=== PATIENT | female | born 1935 | race Caucasian/White ===

== ENCOUNTER 2019-07-06 05:21 | Inpatient (IN) | payer MEDICARE, OTHER ==
[~2019-07-06] VITALS: Ht 165.1 cm; Wt 53.8 kg
[2019-07-06] VITALS (14 sets, daily range): BP systolic 90–123; BP diastolic 47–90
--- NOTE | 2019-07-06 06:03 | PHYS DOC ---
Adult General Chief Complaint Chief Complaint: fever HPI HPI Patient is a 83 year old female who presents to the emergency department for evaluation of fever and difficulty breathing. The patient was brought to the emergency department by EMS from [facility]. Patient noted to have fever of 101F at nursing facility. Has been having cough and congestion over the past 2-3 days. Patient has history of dementia and is nonverbal, this history unable to be provided by patient. Patient was administered a breathing treatment at the nursing facility prior to arrival and patient was noted to be hypoxic on room air at 86%. Patient unable to verbalize any complaints at this time. The patient was administered a Tylenol suppository approximately one hour prior to arrival. Patient CODE STATUS is DNR. (ROSANNA HAMILTON MD) Review of Systems Review of Systems Unable to obtain from patient due to nonverbal status and profound dementia All other systems were reviewed and found to be within normal limits, except as documented in this note. (ROSANNA HAMILTON MD) Physical Exam Physical Exam Constitutional: Lethargic, febrile, appears acutely ill. [] HENT: Normocephalic, atraumatic, bilateral external ears normal, oropharynx dry, no oral exudates, nose normal. [] Eyes: PERRLA, EOMI, conjunctiva normal, no discharge. [] Neck: Normal range of motion, no tenderness, supple, no stridor. [] Cardiovascular: Tachycardia, regular rhythm, no murmur [] Lungs & Thorax: Fine rales bilaterally, mildly prolonged expiratory phase[] Abdomen: Bowel sounds normal, soft, no tenderness, no masses, no pulsatile masses. [] Skin: Warm, dry, no erythema, no rash. [] Back: No tenderness, no CVA tenderness. [] Extremities: No tenderness, no cyanosis, no clubbing, ROM intact, no edema. [] Neurologic: Lethargic, opens eyes to verbal commands, aphasic. [] (ROSANNA HAMILTON MD) EKG EKG [] (ROSANNA HAMILTON MD) Radiology/Procedures Radiology/Procedures [] (ROSANNA HAMILTON MD) Impressions: PORTABLE CHEST 1V Clinical Indication: Hypoxia, fever. Comparison: None. Findings: The cardiomediastinal silhouette is normal. Lungs are clear. There is no pneumothorax. No pleural effusion is appreciated. Left shoulder arthroplasty. Arthropathy of the right shoulder. IMPRESSION: No acute cardiopulmonary process. Electronically signed by: Jerry Foreman MD (07/06/2019 6:41 AM) [id number] DICTATED AND SIGNED BY: JERRY FOREMAN MD DATE: 07/06/19 0641 CC: DAVON RUBIO DO; ROSANNA HAMILTON MD; DILAN KUNZ MD ~ (DAVON RUBIO DO) Course & Med Decision Making Course & Med Decision Making Pertinent Labs and Imaging studies reviewed. (See chart for details) Suspect pneumonia. IV access obtained. Lab work including blood cultures and lactic acid level drawn and pending at time of sign out. Care of patient signed over to Dr. Rubio at 1802.[] (ROSANNA HAMILTON MD) Course & Med Decision Making The patient's chest x-ray was officially read as normal. I am pretty convinced see a right-sided pneumonia. Also fits the patient's clinical picture. I will go ahead and treat her with Zosyn. The patient does meet sepsis protocol with reported fever, heart rate about 90, and hypoxia. Her blood pressure is within normal limits. I have ordered 30 mL/kg of normal saline, actual body weight will be used. Her lactic acid is 3.7. White count is 18.3. The patient's influenza B is positive. Additionally treat her with Tamiflu liquid 75 mg. The patient has an elevated sodium of 166. She has gotten about 400 mL of lactated Ringer's. I will switch her liter of normal saline to half normal saline. She still needs the fluid resuscitation for sepsis protocol as well as looking clinically dry. I have been ordered 5% dextrose in water at 70 mL an hour. The patient's urinalysis is suggestive of urinary tract infection. I am already treating her with Zosyn which will cover this. I spoke with Dr. Kunz about the patient and he has accepted her for admission to the hospital. I discussed this plan of care with the family and they are in agreement. The patient is DNR, but they would like treatment for her infection. 41 minutes of critical care time was spent on this patient exclusive of other billable procedures. (DAVON RUBIO DO) Dragon Disclaimer Dragon Disclaimer This electronic medical record was generated, in whole or in part, using a voice recognition dictation system. (ROSANNA HAMILTON MD) Departure Departure: Impression: Primary Impression: Sepsis Additional Impressions: Healthcare-associated pneumonia Influenza B Hypernatremia Disposition: ADMITTED INPATIENT Admitting Physician: Dilan Kunz (DAVON RUBIO DO) Condition: GUARDED Referrals: DILAN KUNZ MD (PCP) Sepsis Assessment: Date and Time of Assessment Date: Jul 06, 2019 Time: 06:49 (RUBIO,DAVON DO) Vital Signs Vital Signs Heart rate 98, blood pressure 115/65, 86% on room air (RUBIO,DAVON DO) Respirations Respiratory Effort: Shortness of air Respiratory Pattern: Normal (RUBIO,DAVON DO) Cardiovascular Pulse Rhythm: Regular HEART: Nml rate, reg. rhythm (RUBIO,DAVON DO) Lung Sounds Breath Sounds: Coarse (RUBIO,DAVON DO) Capillary Refill Capillary Refill: Rt Hand > 3 seconds (RUBIO,DAVON DO) Peripheral Pulse Pulse Location: Monitor Pulse Strength: Normal (2+) Pulse Assessment Method: Monitor (RUBIO,DAVON DO) Integumentary Skin: Warm Skin Moisture: Dry Skin Turgor: Decreased Skin Color: no erythema Fingernail Color: WNL (RUBIO,DAVON DO) Sepsis Assessment: Date and Time of Assessment Date: Jul 06, 2019 Time: 09:24 (RUBIO,DAVON DO) Vital Signs Vital Signs Heart rate 84, blood pressure 109/88, O2 96% on 2 L nasal cannula. (RUBIO,DAVON DO) Respirations Respiratory Effort: Normal Respiratory Pattern: Normal (RUBIO,DAVON DO) Cardiovascular Pulse Rhythm: Regular HEART: Nml rate, reg. rhythm (RUBIO,DAVON DO) Lung Sounds Breath Sounds: Coarse (RUBIO,DAVON DO) Capillary Refill Capillary Refill: Rt Hand < 3 seconds (RUBIO,DAVON DO) Peripheral Pulse Pulse Location: Monitor Pulse Strength: Normal (2+) Pulse Assessment Method: Monitor (RUBIO,DAVON DO) Integumentary Skin: Warm Skin Moisture: Dry Skin Turgor: Decreased Skin Color: no erythema Fingernail Color: WNL (RUBIO,DAVON DO) Problem Qualifiers Primary Impression: Sepsis Sepsis type: sepsis due to unspecified organism ROSANNA HAMILTON MD Jul 06, 2019 06:03 DAVON RUBIO DO Jul 06, 2019 06:54
--- NOTE | 2019-07-06 06:44 | RAD ---
PORTABLE CHEST 1V Clinical Indication: Hypoxia, fever. Comparison: None. Findings: The cardiomediastinal silhouette is normal. Lungs are clear. There is no pneumothorax. No pleural effusion is appreciated. Left shoulder arthroplasty. Arthropathy of the right shoulder. IMPRESSION: No acute cardiopulmonary process. Electronically signed by: Jerry Foreman MD (07/06/2019 6:41 AM) [id number]
[2019-07-06] MEDS ORDERED: IV NORMAL SALINE 1,000ML 1,500 ML IV SCH (06:45)
[2019-07-06 06:48] LABS: BASO # 0.1 x10^3/uL (0.0-0.2); BASO % 0 % (0-3); EOS % 0 % (0-3); HEMATOCRIT 41.9 % (36.0-47.0); HEMOGLOBIN 13.2 g/dL (12.0-15.5); LYMPH % 5 % (24-48); MEAN CORPUSCULAR HEMOGLOBIN 31 pg (25-35); MEAN CORPUSCULAR HGB CONC 32 g/dL (31-37); MEAN CORPUSCULAR VOLUME 99 fL (79-100); MONO # 1.2 x10^3/uL (0.0-1.1); MONO % 6 % (0-9); NEUT # 16.1 x10^3uL (1.8-7.7); NEUT % 88 % (31-73); PLATELET COUNT 275 x10^3/uL (140-400); RED BLOOD COUNT 4.23 x10^6/uL (3.50-5.40); RED CELL DISTRIBUTION WIDTH 15.7 % (11.5-14.5); WHITE BLOOD COUNT 18.3 x10^3/uL (4.0-11.0)
[2019-07-06] MEDS ORDERED: IV NORMAL SALINE 1,000ML 1,000 ML IV SCH (07:00)
[2019-07-06] MEDS ORDERED: PIPERACILLIN/TAZOBACTAM 3.375 GM in IV NORMAL SALINE 50ML 50 ML IV ONE (07:00)
[2019-07-06 07:01] LABS: ALBUMIN 2.5 g/dL (3.4-5.0); ALBUMIN/GLOBULIN RATIO 0.4 (1.0-1.7); CALCIUM 8.7 mg/dL (8.5-10.1); CREATININE 1.4 mg/dL (0.6-1.0); GFR 35.9; POTASSIUM 3.4 mmol/L (3.5-5.1); TOTAL BILIRUBIN 0.5 mg/dL (0.2-1.0); TOTAL PROTEIN 8.1 g/dL (6.4-8.2)
[2019-07-06 07:01] LABS: INFLUENZA A PATIENT NEGATIVE (NEGATIVE); INFLUENZA B PATIENT POSITIVE (NEGATIVE)
[2019-07-06] MEDS ORDERED: OSELTAMIVIR 30 MG/5 ML ORAL.SUSP. PO STA (07:02)
[2019-07-06 07:04] LABS: BILIRUBIN,URINE NEG (NEG); CLARITY,URINE CLOUDY; COLOR,URINE AMBER; GLUCOSE,URINE NEG (NEG); NITRITE,URINE NEG (NEG)
[2019-07-06 07:05] LABS: AMORPHOUS SEDIMENT,UR PRESENT /HPF; BACTERIA,URINE MOD /HPF (0-FEW); HYALINE CASTS, URINE FEW /HPF; SQUAMOUS EPITHELIAL CELL,UR FEW /LPF
[2019-07-06] MEDS ORDERED: PIPERACILLIN/TAZOBACTAM 3.375 GM VIAL IV ONE (07:05)
[2019-07-06] MEDS ORDERED: IV NORMAL SALINE 50ML 50 ML ONE (07:05)
[2019-07-06] MEDS ORDERED: IV 1/2 NORMAL SALINE 1,000 ML IV ONE (07:15)
[2019-07-06 07:25] LABS: % LYMPHS 10 % (24-48); % MONOS 5 % (0-10); % SEGS 85 % (35-66)
[2019-07-06 07:26] LABS: PLT ESTIMATE ADEQUATE (ADEQUATE)
[2019-07-06] MEDS ORDERED: IV DEXTROSE 5% 1,000 ML IV ONE (07:30)
[2019-07-06] MEDS ORDERED: ONDANSETRON PF 4 MG/2 ML VIAL. IV PRN (07:30)
[2019-07-06] MEDS ORDERED: ACETAMINOPHEN 325 MG TABLET PO PRN (07:30)
[2019-07-06] MEDS: IPRATRPIUM/ALBUTEROL 0.5/2.5MG 3 ML NEBU. NEB SCH ×4 (08:27→21:30)
[2019-07-06] MEDS: IV DEXTROSE 5% 1,000 ML IV SCH ×2 (12:30→21:38)
--- NOTE | 2019-07-06 12:47 | HP ---
ADMIT DATE: 07/06/2019 HISTORY OF PRESENT ILLNESS: The patient is an 83-year-old female patient, a resident at [facility], who apparently was brought to the Emergency Department for evaluation of fever and shortness of breath. The nursing staff stated that she was febrile with temperature of 101 at the nursing facility. She has been having cough and congestion for the past 2-3 days. She is known to have dementia and is nonverbal. She was given breathing treatment at the nursing facility prior to arrival as she was noted to be hypoxic on room air at 86%. She is demented and unable to verbalize any complaint. She was extensively evaluated in the Emergency Room and her lab work showed a white cell count of 18,000. Her chemistry showed severe hypernatremia with a serum sodium of 166, hypokalemia and lactic acidosis. Her BUN and creatinine were also elevated at 36 and 1.4. Urinalysis showed the urine was cloudy with trace of leukocyte esterase, 11-20 wbc's and moderate amount of bacteria. Her influenza A was negative. Influenza B was positive. Her chest x-ray showed that the patient has cardiomediastinal silhouette which is normal. Lungs are clear. There is no pneumothorax, no pleural effusion appreciated. Left shoulder arthroplasty and arthropathy of the right shoulder; however, given the patient has leukocytosis with mostly polymorphonuclear leukocytes, fever with a background of influenza and dysphagia; favor the likelihood that she has also pneumonia. She was given IV fluid, was started on Tamiflu and Zosyn as then switched to D5W given that she has severe hypernatremia. PAST MEDICAL HISTORY: Significant for Alzheimer's disease, dementia, pseudobulbar affect as well as dysphagia. MEDICATIONS: She is currently on following medications: She is on Tylenol 650 mg rectally every 4 hours as needed for elevated temperature. She is also on Dulcolax suppository 10 mg rectally as needed for constipation, DuoNeb by nebulizer every 6 hours as needed. She is on milk of magnesia 30 mL p.o. daily p.r.n. for constipation, MiraLax 17 grams daily and Mucinex ____ 20 mL by mouth twice a day, senna 1 tablet once a day. ALLERGIES: The patient is allergic to AMIODARONE, SULFAMETHOXAZOLE AND TRIMETHOPRIM. FAMILY HISTORY: Noncontributory. SOCIAL HISTORY: [facility] She is mostly in a Broda chair, does not smoke, drink alcohol or use any recreational drugs. She has a daughter that is very caring and comes and visit her every day. The patient herself does not give any useful information. PHYSICAL EXAMINATION: GENERAL: On arrival to the Emergency Room, the patient was clearly tachypneic, but no jaundice, cyanosis or thyromegaly. No jugular venous distention. No limb edema. VITAL SIGNS: Her heart rate was 97, blood pressure was 112/59, temperature was 100, respiratory rate was 28 and oxygen saturation was 88% on room air, it went up to 96% on 2 liters of oxygen. HEAD, EYES, EARS, NOSE AND THROAT: Showed normocephalic, atraumatic. NECK: Supple. HEART: Showed normal first and second heart sounds. No gallop or murmur. CHEST: Clear to auscultation. No crepitation or rhonchi. ABDOMEN: Distended, soft, nontender. NEUROLOGIC: She is extremely lethargic. She is also demented without any obvious lateralizing sign. She is mostly bedbound, chair bound. LABORATORY DATA: Her lab work on arrival showed a white cell count of 18,300, hemoglobin 13, hematocrit 42, MCV 99 and platelet count 275,000. Her chemistry showed a serum sodium 166, potassium 3.4, chloride 126, bicarbonate 28, anion gap of 12, BUN 36, creatinine 1.4, estimated GFR was 56 mL per minute. Her glucose 126. Lactic acid was 3.7. Her calcium was 8.7. Total bilirubin 0.5. AST, ALT, alkaline phosphatase were normal. Total protein was 8.1, albumin was 2.5. Urinalysis showed the urine was cloudy with a pH of 5.5, specific gravity of 1.030, there was large amount of protein, negative for glucose, ketones, moderate amount of blood, negative for nitrite. There was a trace of leukocyte esterase. There were 3-5 rbc's, 11-20 wbc's, and moderate amount of bacteria. Her serology showed that the influenza A was negative and B was positive. ASSESSMENT AND PLAN: 1. In summary, this is an 83-year-old female patient who was admitted with influenza B. 2. Healthcare-associated pneumonia. 3. Severe hypernatremia and acute kidney injury. She is known to have dementia with oropharyngeal dysphagia. PLAN: To continue with Tamiflu, continue with D5W to replenish water deficit, was calculated about 4.8 liters. Continue with Zosyn. I would add also Zyvox and I will repeat her labs this afternoon and again tomorrow morning and would decide further management accordingly. DILAN CRANE MD DR: ANKIT/connor JOB#: [id number] / [id number]
[2019-07-06] MEDS ORDERED: IPRA3AMP29 NEB (15:16)
[2019-07-06] MEDS ORDERED: SENN8.8S5 PO (15:16)
[2019-07-06] MEDS ORDERED: ACET325T9 PO ×2 (15:16)
[2019-07-06] MEDS ORDERED: [UNRECOGNIZED DRUG - CODE] PO (15:16)
[2019-07-06] MEDS ORDERED: POLY119P4 PO ×2 (15:16)
[2019-07-06] MEDS ORDERED: MAGN24003 PO (15:16)
[2019-07-06] MEDS ORDERED: BISA10SU4 RC (15:16)
[2019-07-06] MEDS ORDERED: ACET650S11 RC (15:16)
[2019-07-06 15:27] LABS: CALCIUM 7.9 mg/dL (8.5-10.1); CREATININE 1.2 mg/dL (0.6-1.0); GFR 42.9; POTASSIUM 3.1 mmol/L (3.5-5.1)
[2019-07-06] MEDS: POTASSIUM CHLORIDE 40 MEQ in IV DEXTROSE 5% 1,000 ML IV SCH (18:08)
[2019-07-06] MEDS ORDERED: OSELTAMIVIR 30 MG/5 ML ORAL.SUSP. PEG SCH (21:00)
[2019-07-07] VITALS (18 sets, daily range): BP systolic 90–138; BP diastolic 44–97
[2019-07-07] MEDS: IPRATRPIUM/ALBUTEROL 0.5/2.5MG 3 ML NEBU. NEB SCH ×2 (04:23→21:03)
[2019-07-07] MEDS: POTASSIUM CHLORIDE 40 MEQ in IV DEXTROSE 5% 1,000 ML IV SCH ×2 (05:02→15:42)
[2019-07-07 07:10] LABS: HEMATOCRIT 35.9 % (36.0-47.0); HEMOGLOBIN 11.4 g/dL (12.0-15.5); RED BLOOD COUNT 3.64 x10^6/uL (3.50-5.40); RED CELL DISTRIBUTION WIDTH 15.8 % (11.5-14.5); WHITE BLOOD COUNT 17.4 x10^3/uL (4.0-11.0)
[2019-07-07 07:20] LABS: ALBUMIN 2.1 g/dL (3.4-5.0); ALBUMIN/GLOBULIN RATIO 0.4 (1.0-1.7); CALCIUM 8.1 mg/dL (8.5-10.1); CREATININE 1.1 mg/dL (0.6-1.0); GFR 47.4; MAGNESIUM 2.2 mg/dL (1.8-2.4); POTASSIUM 3.3 mmol/L (3.5-5.1); TOTAL BILIRUBIN 0.3 mg/dL (0.2-1.0)
[2019-07-07] MEDS: OSELTAMIVIR 30 MG/5 ML ORAL.SUSP. PO SCH ×2 (09:00→09:57)
[2019-07-07] MEDS ORDERED: ACETAMINOPHEN 650 MG SUPP.RECT. PR PRN (18:00)
[2019-07-08] VITALS (16 sets, daily range): BP systolic 90–122; BP diastolic 52–92
[2019-07-08] MEDS: POTASSIUM CHLORIDE 40 MEQ in IV DEXTROSE 5% 1,000 ML IV SCH (02:44)
[2019-07-08] MEDS: IPRATRPIUM/ALBUTEROL 0.5/2.5MG 3 ML NEBU. NEB SCH ×4 (05:37→20:10)
[2019-07-08] MEDS: OSELTAMIVIR 30 MG/5 ML ORAL.SUSP. PO SCH (08:19)
[2019-07-08 09:46] LABS: BASO % 0 % (0-3); EOS # 0.3 x10^3/uL (0.0-0.7); EOS % 2 % (0-3); HEMATOCRIT 34.7 % (36.0-47.0); HEMOGLOBIN 11.2 g/dL (12.0-15.5); LYMPH # 1.4 x10^3/uL (1.0-4.8); LYMPH % 10 % (24-48); MEAN CORPUSCULAR HEMOGLOBIN 32 pg (25-35); MEAN CORPUSCULAR HGB CONC 32 g/dL (31-37); MEAN CORPUSCULAR VOLUME 98 fL (79-100); MONO # 0.7 x10^3/uL (0.0-1.1); MONO % 5 % (0-9); NEUT # 12.1 x10^3uL (1.8-7.7); NEUT % 83 % (31-73); PLATELET COUNT 230 x10^3/uL (140-400); RED BLOOD COUNT 3.55 x10^6/uL (3.50-5.40); RED CELL DISTRIBUTION WIDTH 15.2 % (11.5-14.5); WHITE BLOOD COUNT 14.5 x10^3/uL (4.0-11.0)
[2019-07-08 09:55] LABS: CALCIUM 7.8 mg/dL (8.5-10.1); CREATININE 0.9 mg/dL (0.6-1.0); GFR 59.8; POTASSIUM 4.4 mmol/L (3.5-5.1)
[2019-07-08] MEDS: IV RINGERS SOLUTION,LACTATED 1,000 ML IV SCH (11:46)
--- NOTE | 2019-07-08 23:23 | PN ---
DATE: 07/08/2019 ATTENDING PHYSICIAN: Dr. Kunz. SUBJECTIVE: Unresponsive. She remains fairly comatose, nonverbal and nonambulatory. She was able to take some sips of juice this morning by report. PHYSICAL EXAMINATION: VITAL SIGNS: Blood pressure today is 122/72, pulse is 77 and regular, oxygen saturation 95% on 2 liters of oxygen by nasal cannula. GENERAL: She has an audible gurgling of rattle. Family is keeping individual at the bedside. HEENT: Pupils are reactive. Sclerae nonicteric. Oropharynx dry mucous membrane. NECK: Supple. LUNGS: Respirations, obvious rhonchi in the upper airways with shallow respirations. CARDIOVASCULAR: Distant heart tones. No obvious gallops. Peripheral pulses are palpable, weak. ABDOMEN: Soft. No guarding or rebound tenderness. EXTREMITIES: Showed no cyanosis or edema. NEUROLOGIC: The patient remains comatose and bedridden. LABORATORY DATA: Her serum sodium is down to 141 mEq per liter, creatinine is down to 0.9 mg/dL. Hemoglobin maintained 11.2 g/dL with white count of 14,500. ASSESSMENT: 1. An 83-year-old female, senior care resident with healthcare-associated pneumonia. 2. Influenza B infection. 3. Generalized debilitation. 4. Profound dementia. 5. Severe hypernatremia due to free water deficits corrected. PLAN: 1. The patient remains comfort measures. Family is at the bedside. 2. They request hospice care for eventual transfer to [facility] with end of life care for comfort measures. 3. They want to stay in the hospital today. One son is coming in from [place]. He will be here early tomorrow morning. Prognosis remains terminal. JOANA ANGEL MD DR: JULIETA/connor JOB#: [id number] / [id number] DILAN Middleton MD
[2019-07-09] MEDS: IV RINGERS SOLUTION,LACTATED 1,000 ML IV SCH ×2 (00:31→12:01)
[2019-07-09] MEDS: IPRATRPIUM/ALBUTEROL 0.5/2.5MG 3 ML NEBU. NEB SCH ×2 (05:08→12:00)
[2019-07-09 06:04] VITALS: BP 103/71
[2019-07-09] MEDS: OSELTAMIVIR 30 MG/5 ML ORAL.SUSP. PO SCH (09:33)
--- NOTE | 2019-07-09 09:44 | PN ---
DATE: 07/07/2019 ATTENDING PHYSICIAN: Dr. Kunz. CHIEF COMPLAINT: Obtundation. SUBJECTIVE: The patient is comatose and nonverbal. OBJECTIVE FINDINGS: GENERAL: The family is at the bedside. VITAL SIGNS: The patient's blood pressure is 122/97, pulse 78 and regular. She is afebrile, oxygen saturation 99% on 2 liters nasal cannula. LABORATORY DATA: Serum sodium is improved today. The white count is still 17,400. Admission serum sodium was 166, repeated yesterday was down to 157, today is 152 mEq/L; potassium 3.3 mEq, creatinine 1.1 mg/dL. Nonfasting blood sugar 121. She is unable to tolerate any solid foods at this time. PHYSICAL EXAMINATION: HEENT: Pupils were sunken. Orbits are sunken. NECK: Supple. Mucous membranes dry. LUNGS: Shallow respirations. CARDIOVASCULAR: Showed distant heart tones. No obvious gallops. ABDOMEN: Soft, scaphoid, nontender. No guarding or rebound tenderness. EXTREMITIES: Show muscle wasting. NEUROLOGIC: The patient is obtunded and nonverbal, clearly nonambulatory. ASSESSMENT: 1. This 83-year-old female, assisted patient has influenza B virus detected. 2. intermediate acquired pneumonia. 3. Profound dehydration with hypernatremia due to free water deficit. 4. Underlying dementia that is profound. 5. Profound cachexia. 6. Generalized debilitation. PLAN: 1. Continue IV fluids. 2. Her and daughter in the room. I had a ba discussion with them regarding end of life care. They feel that this may be futile. They are in the process of contacting two other siblings and if they are in agreement that they will let us know when to stop all heroic efforts. 3. We should contact hospice services on Tuesday. She had been with hospice services a year ago, but since she improved, she was discharged from hospice services. 4. Serial chemistries as ordered. JOANA ANGEL MD DR: JULIETA/connor JOB#: [id number] / [id number] DILAN Middleton MD
[2019-07-09 11:28] VITALS: BP 121/49
--- NOTE | 2019-07-09 12:08 | DS ---
DATE OF DISCHARGE: 07/09/2019 DISCHARGE SUMMARY HOSPITAL COURSE: The patient is an 83-year-old female patient, resident at [facility], who was admitted on 07/06/2019. She was noted to be febrile with having cough and congestion for the last 2-3 days. She is known to have dementia and is nonverbal. She was evaluated in the Emergency Room, was found to have extreme hypernatremia with serum sodium 166, hypokalemia, lactic acidosis. Her BUN and creatinine were also elevated. Urinalysis showed 11-20 wbc's and moderate amount of bacteria. Her influenza A was negative. Influenza B was positive. Chest x-ray showed that her lungs are clear. There is no pneumothorax or pleural effusion. The patient was admitted, started on Tamiflu, Zosyn and Zyvox and was also started on D5W for severe hyponatremia. Her serum sodium has steadily improved. In fact, her serum sodium came down from 166, down to 141. Her potassium has improved to 4.4, BUN is down from 36-1 and creatinine came down from 1.4 to 0.9. Her urine culture has grown more than 100,000 colony forming unit per mL of gram-negative rods. The identification of sensitivity is still pending at the time of this dictation; however, the patient is clinically responding to Zyvox. The family apparently had made decision to discharge her back to [facility] to go on hospice. PHYSICAL EXAMINATION: GENERAL: When I saw her today, she looked well and was clearly in no apparent respiratory distress, pale, somewhat cachectic, but no jaundice, cyanosis or thyromegaly. No jugular venous distention. No limb edema. VITAL SIGNS: Her heart rate was 72, blood pressure 103/71, temperature was 98.4, respiratory rate was 17, and oxygen saturation was 93% on 2 liters of oxygen. HEAD, EYES, EARS, NOSE AND THROAT: Showed normocephalic, atraumatic. NECK: Supple. HEART: Showed normal first and second heart sounds. No gallop, rub or murmur. CHEST: Clear to auscultation. No crepitation or rhonchi. ABDOMEN: Distended, soft, and nontender. NEUROLOGIC: She is awake, alert, responding appropriately. All cranial nerves intact. She is very confused, nonverbal. All her cranial nerves intact. She is mostly bedbound, chair bound. Her intake was 1300, output was 725. LABORATORY DATA: As of this morning, her serum sodium 141, potassium 4.4, chloride 109, bicarbonate 24, anion gap of 8, BUN 11, creatinine 0.9, estimated GFR was 59 mL per minute. Her glucose 128, calcium was 7.8. White cell count of 14,500, hemoglobin 11, hematocrit 34, MCV 98, and platelet count 230,000. DISCHARGE MEDICATIONS: She was discharged back to [facility] to continue on Tamiflu 30 mg once a day for 2 more days and amoxicillin/potassium clavulanate 250/6.25 mg in 5 mL, she takes 5 mL p.o. b.i.d. for 5 more days and to continue with all other medication including Tylenol 650 mg every 6 hours, ipratropium bromide, albuterol sulfate by nebulizer 4 times a day, milk of magnesia 30 mL p.o. daily p.r.n. for constipation, MiraLax 17 grams daily, polyethylene glycol 17 grams as needed and senna 1 tablet once a day. FINAL DISCHARGE DIAGNOSES: Influenza B, continue Tamiflu 30 mg once a day and acute kidney injury, improved; severe hyponatremia, resolved; hypokalemia, resolved; dysphagia and advanced dementia. PLAN: Plan is to discharge her back to [facility] with hospice consulted to evaluate and treat. DILAN CRANE MD DR: ANKIT/connor JOB#: [id number] / [id number]
[2019-07-09] MEDS ORDERED: AMOXICILLIN/K CLAV 500/125MG TABLET. PO SCH (12:30)
[2019-07-10] MEDS ORDERED: OSELTAMIVIR 30 MG/5 ML ORAL.SUSP. PO SCH (09:00)
== END 2019-07-09 14:20 | disposition hospice, inpatient (51) | DRG 871 ==
LOC: ER 05:21 → ICU 09:29
PROVIDERS: ADMIT Internal Medicine; ATTEND Internal Medicine
DX: A41.9 Sepsis, unspecified organism (principal); J10.00 Influenza due to other identified influenza virus with unspecified type of pneumonia; E43 Unspecified severe protein-calorie malnutrition; E87.0 Hyperosmolality and hypernatremia; N17.9 Acute kidney failure, unspecified; E87.1 Hypo-osmolality and hyponatremia; R64 Cachexia; Z68.1 Body mass index [BMI] 19.9 or less, adult; F02.80 Dementia in other diseases classified elsewhere, unspecified severity, without behavioral disturbance, psychotic disturbance, mood disturbance, and anxiety; R09.02 Hypoxemia; Z66 Do not resuscitate; E87.6 Hypokalemia; G30.9 Alzheimer's disease, unspecified; R13.12 Dysphagia, oropharyngeal phase; E86.0 Dehydration; Z96.612 Presence of left artificial shoulder joint
CPT/HCPCS: 36415; 71045; 80048; 80053; 81001; 83605; 83735; 85007; 85025; 85027; 87040; 87086; 87186; 87804; 94640; 96365; 96366; J2020; J2543; J7030; J7120; J7620; 99285-25

== ENCOUNTER 2019-07-20 23:38 | Observation (INO) | payer MEDICARE, OTHER ==
[~2019-07-20] VITALS: Ht 165.1 cm; Wt 51.0 kg
[~2019-07-20 23:38] MED LIST: ACET325T9 PO; ACET650S11 RC; BISA10SU4 RC; IPRA3AMP29 NEB; MAGN24003 PO; POLY119P4 PO; SENN8.8S5 PO; [UNRECOGNIZED DRUG - CODE] PO
--- NOTE | 2019-07-20 23:40 | PHYS DOC ---
Past History Past Medical History: Arthritis, Dementia, Other Additional Past Medical Histor: Alzheimers, dysphagia; pseudobulbar affect; Past Surgical History: Other Additional Past Surgical Histo: unknown Past Surgical History lT. SHOULDER REPLACEMENT Alcohol Use: None Adult General Chief Complaint Chief Complaint: - hx. fall- Pt. non-verbal HPI HPI Patient is a 83 year old female who presents with hx of fall. Pt. is resident of [facility] with hx of reported fall at 2310 hrs. Pt. Resident of [facility] since 06-23-2016. Pt. follows with Dr. Kunz. Patient has a medical history of Alzheimer's disease, dysphagia, dementia, gram-negative sepsis, pseudobulbar af fect, UTIs, behavior disturbances, and decondition. Pt. reportedly on hospice and a DNR. Does maintain obtain an indwelling Singer catheter. Primary contact daughter Najma Quinn [phone]. Pt. does have hx of recent diagnosis of influenza. Pt was on her air mattress at 2300 rounds and found on floor at 2310 hrs. Pt. has two lacerations to scalp. Rt. eyebrow had 5 cm laceration to level of skull and 2 cm laceration to Rt. lateral scalp. Review of Systems Review of Systems Patient is not verbal Family History Family History Not currently available Current Medications Current Medications See nursing for home meds Allergies Allergies Allergies Coded Allergies Type Severity Reaction Last Updated Verified amiodarone Allergy Intermediate 07/06/19 Yes sulfamethoxazole Allergy Intermediate 07/06/19 Yes trimethoprim Allergy Intermediate 07/06/19 Yes Physical Exam Physical Exam Constitutional: Mild distress, chronically ill in appearance. [] HENT: Normocephalic, laceration to right side of scalp and eyebrow as per history of present illness, bilateral external ears normal, oropharynx dry, no oral exudates, nose normal. [] Eyes: PERRLA, EOMI, conjunctiva normal, no discharge. [] Neck: Normal range of motion, no tenderness, supple, no stridor. [] Cardiovascular: Tachycardia Heart rate, occasional PVCs and irregular beats. PMI to the left Lungs & Thorax: Bilateral breath sounds equal at apex on auscultation [] Abdomen: Bowel sounds normal, soft, no tenderness, no masses, no pulsatile masses. Scar Skin: Warm, dry, no erythema, no rash. Poor turgor Back: No tenderness, no CVA tenderness. [] Extremities: No obvious tenderness, no cyanosis, no clubbing, , no edema. Limbs are contracted. Large scar Lt. shoulder. Neurologic: Alert x1 voice , opens eyes on request, minimal movement, does seem to have distal sensory function, patient is not verbal- normal presentation for pt. Pt. Cross reacts to noxious stimuli. Psychologic: Affect appears anxious, EKG EKG [] Radiology/Procedures Radiology/Procedures [address] [address] IMAGING REPORT Signed PATIENT: AASHISH GLEZ ACCOUNT: [id number] : 1935 LOCATION: ER AGE: 83 SEX: F EXAM STATUS: REG ER ORD. PHYSICIAN: CHANDAN FREGOSO MD REASON: UNWITNESSED FALL, HEAD INJURY PROCEDURE: CT CERVICAL SPINE WO CONTRAST CT cervical spine without contrast dated 07/21/2019. No comparison available. Clinical data indication: Pain after fall. TECHNIQUE: Contiguous axial imaging of the cervical spine performed with thin cut coronal and sagittal reconstruction. One or more of the following individualized dose reduction techniques were utilized for this examination: 1. Automated exposure control 2. Adjustment of the mA and/or kV according to patient size 3. Use of iterative reconstruction technique. FINDINGS: There is slight anterolisthesis of C5 on C6. Sagittal alignment is otherwise anatomic. Vertebral body heights are maintained. No prevertebral soft tissue swelling. Posterior elements are intact. No evidence of fracture. Mild endplate hypertrophic changes throughout with multilevel moderate to severe disc space narrowing. There is mild multilevel uncovertebral spurring and facet arthropathy. There is resultant mild right foraminal stenosis at C5-C6. No apparent central canal compromise. Limited imaged portions the brain parenchyma show moderate atrophy for patient's age. Visualized soft tissue structures unremarkable. Thyroid gland unremarkable. There is biapical scarring. IMPRESSION: 1. No evidence of fracture or malalignment. 2. Mild multilevel spondylosis. Electronically signed by: Rashid Cox MD (07/21/2019 1:37 AM) [id number] DICTATED AND SIGNED BY: RASHID COX MD DATE: 07/21/19 0137 CC: CHANDAN FREGOSO MD; DILAN KUNZ MD ~ IMAGING REPORT Signed PATIENT: AASHISH GLEZ ACCOUNT: [id number] : 1935 LOCATION: ER AGE: 83 SEX: F EXAM STATUS: REG ER ORD. PHYSICIAN: CHANDAN FREGOSO MD REASON: UNWITNESSED FALL PROCEDURE: CHEST AP ONLY Single view chest dated 07/21/2019. Comparison made to 07/06/2019. Clinical data indication: Unwitnessed fall. Pain. FINDINGS: Single upright portable exam performed. Heart and mediastinal contours are stable. There is some patchy increased density at the retrocardiac left base, similar to prior study. The lungs are hyperinflated. No new infiltrate or pleural effusion. No pneumothorax. Evidence of prior total shoulder arthroplasty on the left. Mild biapical scarring, unchanged. IMPRESSION: 1. Patchy retrocardiac consolidation on the left, similar to prior study. This could be related to chronic atelectasis or scar. 2. Hyperinflation suggesting COPD. Electronically signed by: Rashid Cox MD (07/21/2019 1:39 AM) [id number] DICTATED AND SIGNED BY: RASHID COX MD DATE: 07/21/19 0139 CC: CHANDAN FREGOSO MD; DILAN KUNZ MD ~ [][place] [address] IMAGING REPORT Signed PATIENT: AASHISH GLEZ ACCOUNT: [id number] : 1935 LOCATION: ER AGE: 83 SEX: F EXAM STATUS: PRE ER ORD. PHYSICIAN: CHANDAN FREGOSO MD REASON: fall, head injury PROCEDURE: CT HEAD WO CONTRAST Exam: CT head INDICATION: Fall, head injury TECHNIQUE: Sequential axial images through the head were obtained without the administration of IV contrast. Comparisons: None FINDINGS: No focal parenchymal lesion or hemorrhage is identified. There is no midline shift or sulcal effacement. Extensive generalized cerebral atrophy. No acute vascular territory infarction is identified. Weems-white distinction is preserved. The ventricular system is within normal limits without compression hydrocephalus. The basal cisterns are well maintained. Mild extra cranial soft tissue contusion overlying the right frontal scalp. The visualized portions of the paranasal sinuses and mastoid air cells are well-pneumatized. No acute fractures. IMPRESSION: Mild extra cranial soft tissue contusion overlying the right frontal scalp. No underlying osseous or intracranial abnormality. Exposure: One or more of the following in the visualized dose reduction techniques were utilized for this examination: 1. Automated exposure control 2. Adjustment of the MA and/or KV according to patient size Use of iterative of reconstructive technique Electronically signed by: Shanice Leiva MD (07/20/2019 11:52 PM) [id number] DICTATED AND SIGNED BY: SHANICE LEIVA MD DATE: 07/20/19 7429 CC: CHANDAN FREGOSO MD; DILAN KUNZ MD ~ Course & Med Decision Making Course & Med Decision Making Pertinent Labs and Imaging studies reviewed. (See chart for details) Procedure note: Lacerations repair. Lacerations clean with Betadine and s shira. Injected edge of lacerations with Lidocaine 2%. Irrigated laceration with NS. Closed 5 cm Rt. eye brow laceration with 7 x 3-0 Vicryl and 2 cm laceration with 3 x simple sutures. Singer- min. fluid return. UA sent. Cloudy. Discussed findings with and son. Advised to do comfort measures. DNR - no CPR, shocks, intubations. Discussed presentation, testing and tx. plan with Dr. Kunz. - Admit to Observation status. Impression: 1. Head Injury- Laceration 2 cm and 4 cm as per HPI 2. Hx. Fall 3. History of dementia 4. Hospice patient- DNR status No CPR, No Compressions, No shocks, No intubations. Focus comfort care. 5. UTI 6. Hx recent Dx influenza B + 07/06/2019 7. Dehydration 8. Malnutrition Alb. 2.5 9. Lactic Acid 2.9 [] Dragon Disclaimer Dragon Disclaimer This electronic medical record was generated, in whole or in part, using a voice recognition dictation system. Departure Departure: Disposition: 01 HOME/RESIDENCE PRIOR TO ADM Condition: STABLE Referrals: DILAN KUNZ MD (PCP) Dragon Disclaimer This chart was dictated in whole or in part using Voice Recognition software in a busy, high-work load, and often noisy Emergency Department environment. It may contain unintended and wholly unrecognized errors or omissions. CHANDAN FREGOSO MD Jul 20, 2019 23:40
--- NOTE | 2019-07-20 23:55 | RAD ---
Exam: CT head INDICATION: Fall, head injury TECHNIQUE: Sequential axial images through the head were obtained without the administration of IV contrast. Comparisons: None FINDINGS: No focal parenchymal lesion or hemorrhage is identified. There is no midline shift or sulcal effacement. Extensive generalized cerebral atrophy. No acute vascular territory infarction is identified. Weems-white distinction is preserved. The ventricular system is within normal limits without compression hydrocephalus. The basal cisterns are well maintained. Mild extra cranial soft tissue contusion overlying the right frontal scalp. The visualized portions of the paranasal sinuses and mastoid air cells are well-pneumatized. No acute fractures. IMPRESSION: Mild extra cranial soft tissue contusion overlying the right frontal scalp. No underlying osseous or intracranial abnormality. Exposure: One or more of the following in the visualized dose reduction techniques were utilized for this examination: 1. Automated exposure control 2. Adjustment of the MA and/or KV according to patient size Use of iterative of reconstructive technique Electronically signed by: Shanice Grijalva MD (07/20/2019 11:52 PM) [id number]
[2019-07-21] MEDS ORDERED: LIDOCAINE 2%/EPI 1:100,000 20 ML VIAL. IJ ONE
[2019-07-21 00:40] LABS: BASO # 0.1 x10^3/uL (0.0-0.2); BASO % 1 % (0-3); EOS # 0.3 x10^3/uL (0.0-0.7); EOS % 3 % (0-3); HEMATOCRIT 37.5 % (36.0-47.0); HEMOGLOBIN 12.3 g/dL (12.0-15.5); LYMPH # 2.2 x10^3/uL (1.0-4.8); LYMPH % 22 % (24-48); MEAN CORPUSCULAR HEMOGLOBIN 31 pg (25-35); MEAN CORPUSCULAR HGB CONC 33 g/dL (31-37); MEAN CORPUSCULAR VOLUME 96 fL (79-100); MONO # 0.7 x10^3/uL (0.0-1.1); MONO % 7 % (0-9); NEUT # 6.6 x10^3uL (1.8-7.7); NEUT % 67 % (31-73); PLATELET COUNT 479 x10^3/uL (140-400); RED BLOOD COUNT 3.91 x10^6/uL (3.50-5.40); WHITE BLOOD COUNT 9.8 x10^3/uL (4.0-11.0)
[2019-07-21 00:44] LABS: CALCIUM 8.6 mg/dL (8.5-10.1); CREATININE 0.9 mg/dL (0.6-1.0); GFR 59.8; POTASSIUM 4.7 mmol/L (3.5-5.1)
[2019-07-21 00:50] LABS: ALBUMIN 2.5 g/dL (3.4-5.0); DIRECT BILIRUBIN 0.1 mg/dL (0.0-0.2); TOTAL BILIRUBIN 0.3 mg/dL (0.2-1.0); TOTAL PROTEIN 7.2 g/dL (6.4-8.2)
[2019-07-21 00:51] LABS: BILIRUBIN,URINE NEG (NEG); CLARITY,URINE HAZY; COLOR,URINE YELLOW; GLUCOSE,URINE NEG (NEG); NITRITE,URINE POS (NEG); UROBILINOGEN,URINE 0.2 mg/dL (0.2 mg/dL)
[2019-07-21 00:52] LABS: BACTERIA,URINE MANY /HPF (0-FEW); RBC,URINE OCC /HPF (0-2); WBC,URINE >40 /HPF (0-4)
[2019-07-21] MEDS ORDERED: IV RINGERS SOLUTION,LACTATED 1,000 ML IV ONE ×2 (01:00)
[2019-07-21] MEDS ORDERED: ONDANSETRON PF 4 MG/2 ML VIAL. IV PRN (01:15)
[2019-07-21] MEDS ORDERED: cefTRIAXone SODIUM 1 GM VIAL ONE (01:27)
[2019-07-21] MEDS ORDERED: IV NORMAL SALINE 50ML 50 ML ONE (01:27)
--- NOTE | 2019-07-21 01:40 | RAD ---
CT cervical spine without contrast dated 07/21/2019. No comparison available. Clinical data indication: Pain after fall. TECHNIQUE: Contiguous axial imaging of the cervical spine performed with thin cut coronal and sagittal reconstruction. One or more of the following individualized dose reduction techniques were utilized for this examination: 1. Automated exposure control 2. Adjustment of the mA and/or kV according to patient size 3. Use of iterative reconstruction technique. FINDINGS: There is slight anterolisthesis of C5 on C6. Sagittal alignment is otherwise anatomic. Vertebral body heights are maintained. No prevertebral soft tissue swelling. Posterior elements are intact. No evidence of fracture. Mild endplate hypertrophic changes throughout with multilevel moderate to severe disc space narrowing. There is mild multilevel uncovertebral spurring and facet arthropathy. There is resultant mild right foraminal stenosis at C5-C6. No apparent central canal compromise. Limited imaged portions the brain parenchyma show moderate atrophy for patient's age. Visualized soft tissue structures unremarkable. Thyroid gland unremarkable. There is biapical scarring. IMPRESSION: 1. No evidence of fracture or malalignment. 2. Mild multilevel spondylosis. Electronically signed by: Rashid Cox MD (07/21/2019 1:37 AM) [id number]
--- NOTE | 2019-07-21 01:41 | RAD ---
Single view chest dated 07/21/2019. Comparison made to 07/06/2019. Clinical data indication: Unwitnessed fall. Pain. FINDINGS: Single upright portable exam performed. Heart and mediastinal contours are stable. There is some patchy increased density at the retrocardiac left base, similar to prior study. The lungs are hyperinflated. No new infiltrate or pleural effusion. No pneumothorax. Evidence of prior total shoulder arthroplasty on the left. Mild biapical scarring, unchanged. IMPRESSION: 1. Patchy retrocardiac consolidation on the left, similar to prior study. This could be related to chronic atelectasis or scar. 2. Hyperinflation suggesting COPD. Electronically signed by: Rashid Cox MD (07/21/2019 1:39 AM) [id number]
[2019-07-21 02:38] VITALS: BP 95/58
[2019-07-21] MEDS: IV RINGERS SOLUTION,LACTATED 1,000 ML IV SCH ×3 (03:09→13:45)
[2019-07-21] MEDS ORDERED: LORA2ORA2 PO (04:24)
[2019-07-21] MEDS ORDERED: morphine solution SL (04:59)
[2019-07-21] MEDS ORDERED: PROM25SU33 RC (05:00)
[2019-07-21 05:59] VITALS: BP 127/78
[2019-07-21 11:17] VITALS: BP 134/76
--- NOTE | 2019-07-21 15:04 | SSS ---
ADMIT DATE: HISTORY OF PRESENT ILLNESS: The patient is an 83-year-old female patient, a resident at [facility], who was on hospice and was brought to the Emergency Room with a history of fall. She apparently came with a reported fall at around 11:00 last night. She is known to have Alzheimer disease, dysphagia, dementia, and pseudobulbar affect, UTI, behavioral disturbances and deconditioning. She is on hospice and her code status is DNR/DNI, and does maintain an indwelling Singer catheter. She was recently in this hospital, diagnosed with pneumonia and severe dehydration, hyponatremia and she apparently was on her low air loss mattress and was found on the floor. She sustained 2 lacerations to her scalp, one of the right eyebrow at about 5 cm laceration to the level of the skull and 2 cm laceration of the right lateral scalp. She was evaluated in the Emergency Room. Her lacerations were sutured. She has had CT scan of the head and cervical spine and also chest x-ray and was continued for observation. The patient is completely nonverbal. PAST MEDICAL HISTORY: Significant for Alzheimer's disease, dementia, pseudobulbar affect as well as dysphagia. FAMILY HISTORY: Noncontributory. SOCIAL HISTORY: The patient lives at half-way. She is mostly in a Broda chair, does not smoke, drink alcohol or use any recreational drugs. She has a daughter that is very caring. It comes and visits her every day. The patient herself does not give any useful information. She was recently put on hospice. ALLERGIES: SHE IS ALLERGIC TO AMIODARONE, SULFAMETHOXAZOLE, AND TRIMETHOPRIM. PHYSICAL EXAMINATION: GENERAL: When I saw her today, she was resting slightly propped up in bed, in no apparent distress. She is nonverbal. She does open eyes, does not track or follow command. She was extremely pale, but no jaundice, cyanosis or thyromegaly. No jugular venous distention. No limb edema. VITAL SIGNS: Her heart rate was 97, blood pressure was 134/76, temperature 98.9, respiratory rate was 18, and oxygen saturation was 92%. HEAD, EYES, EARS, NOSE AND THROAT: Showed normocephalic, atraumatic. NECK: Supple. HEART: Showed normal first and second heart sounds. No gallop or murmur. CHEST: Clear to auscultation. No crepitation or rhonchi. ABDOMEN: Slightly distended, soft, nontender. NEUROLOGIC: She does open her eyes, but does not track or follow command. LABORATORY DATA: Showed a white cell count of 9800, hemoglobin 12, hematocrit 37, MCV 96, and platelet count 479,000. Serum sodium was 138, potassium 4.7, chloride 100, bicarbonate 28, anion gap of 10, BUN 8, creatinine 0.9, estimated GFR was 59 mL per minute, her glucose was 98, calcium was 8.6. Total bilirubin, AST, ALT, alkaline phosphatase were normal. Total protein 7.2, albumin 2.5. ASSESSMENT AND PLAN: The patient will be discharged back to [place] to continue on her medication. FINAL DISCHARGE DIAGNOSES: Fall with sustaining laceration above the right eyebrow and lateral scalp, end-stage Alzheimer's disease. DILAN CRANE MD DR: ANKIT/connor JOB#: [id number] / [id number]
[2019-07-21 15:09] VITALS: BP 128/62
== END 2019-07-21 18:44 | disposition home or self-care (01) ==
LOC: ER 23:38 → 1 SOUTH 07-21 01:20
PROVIDERS: ADMIT Internal Medicine; ATTEND Internal Medicine
DX: S01.111A Laceration without foreign body of right eyelid and periocular area, initial encounter (principal); S01.01XA Laceration without foreign body of scalp, initial encounter; S01.81XA Laceration without foreign body of other part of head, initial encounter; G30.9 Alzheimer's disease, unspecified; F02.80 Dementia in other diseases classified elsewhere, unspecified severity, without behavioral disturbance, psychotic disturbance, mood disturbance, and anxiety; M19.90 Unspecified osteoarthritis, unspecified site; N39.0 Urinary tract infection, site not specified; E86.0 Dehydration; E46 Unspecified protein-calorie malnutrition; E87.2 Acidosis; F48.2 Pseudobulbar affect; Z66 Do not resuscitate; Z96.612 Presence of left artificial shoulder joint; W19.XXXA Unspecified fall, initial encounter; Y92.89 Other specified places as the place of occurrence of the external cause; Y93.89 Activity, other specified; Z79.899 Other long term (current) drug therapy
CPT/HCPCS: 36415; 70450; 71045; 72125; 80048; 80076; 81001; 82550; 84484; 85025; 85610; 85730; 87086; 96361; 96365; 96366; 99285; G0378; J0696; J7120; 87186; G0379